=== PATIENT | male | born 1965 | race Caucasian/White ===

== ENCOUNTER 2019-10-19 02:53 | Day surgery (SDC) | payer MEDICARE, MEDICAID, SELFPAY ==
[2019-10-16 10:17] VITALS: BMI 24.1
[2019-10-19 08:29] VITALS: BP 128/80; PULSE 84; RESP 18; TEMP 36.6; O2SAT 99
[2019-10-19] MEDS: LACTATED RINGERS 1,000 ML 150 ML IV CONT (08:39)
--- NOTE | 2019-10-19 09:30 | WPDANESEPPF ---
Anes - Initial Pre Proc Eval Procedure: Operation Date: 10/19/19 09:30 Proposed Procedures p Colonoscopy - Osbaldo Patel MD Date/Time: 10/19/19 09:30 Surgeon: Osbaldo Patel MD Pre Op Diagnosis: diarhhea, change in bowel habits, rectal bleed Patient Data Age: 54 Gender: M Height: 5 ft 7 in Weight: 65.2 kg Last Vital Signs Temp 36.6 C 10/19/19 08:29 Pulse 84 10/19/19 08:29 Resp 18 10/19/19 08:29 BP 128/80 10/19/19 08:29 Pulse Ox 99 10/19/19 08:29 Allergies Allergy/AdvReac Type Severity Reaction Status Date / Time sulfamethizole Allergy Unknown sulfamethoxazole Verified 10/19/19 08:27 ([id number]) sulfamethoxazole Allergy Unknown Rash Verified 10/19/19 08:27 trimethoprim Allergy Unknown trimethoprim Verified 10/19/19 08:27 ([id number]) Home Medications Medication Instructions Recorded Confirmed Type amlodipine 2.5 mg PO DAILY 10/16/19 10/16/19 History atorvastatin 10 mg PO DAILY 10/16/19 10/16/19 History clopidogrel 75 mg PO DAILY 10/16/19 10/19/19 History dicyclomine 20 mg PO DAILY 10/16/19 10/16/19 History hydrocodone-acetaminophen 7.5 tablet PO TID PRN 10/16/19 10/16/19 History levetiracetam 500 mg PO BID 10/16/19 10/19/19 History phenytoin sodium extended 100 mg PO TID 10/16/19 10/16/19 History Patient hx anesthesia problems: none Family hx anesthesia problems: none PMFSH Past Medical History Medical History Cerebral palsy HTN (hypertension) Hyperlipidemia Seizure disorder Smoker Family History Family History Father Family history of Parkinson's disease Other Cerebrovascular accident Diabetes mellitus Family history of arthritis Family history of cardiovascular disease Family history of seizure disorder Hypertension Social History Social History Smoking status: Smoker, status unknown Alcohol intake: never Anes - Eval Final PreProcedure Day of Procedure 10/19/19 09:30 Patient weight: normal Heart: regular rate and rhythm Lungs: clear to auscultation Airway: Mallampati scale class II and special considerations poor dentition Neurological: alert and oriented Last oral intake: >/= 8 hours ASA classification: III Anesthetic plan: proceed Anesthesia type and monitoring: general GIVS and standard monitoring Informed Consent: The patient's anesthetic plan and its attendant risks and benefits were discussed with the patient/family/POA. Questions were solicited and answers provided to the satisfaction of the patient/family/POA.
--- NOTE | 2019-10-19 09:55 | P.CONGI_ITS ---
Assessment and Plan Additional Plan This is a 54-year-old white male patient seen in evaluation at the request of Dr. Villalta. 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 He states loose stools occur post predominantly after meals. He has noticed occasional bright red blood per rectum on tissue paper. Diarrhea is been present for more than 1 year. He has some difficulty with his history given a prior history of cerebral palsy. He has subsequent mental deficiency. Past medical history is significant for cerebral palsy. Peripheral vascular disease. Seizure disorder. Medications include amlodipine, atorvastatin, Plavix, dicyclomine, hydrocortisone, Dilantin He is allergic to sulfa medications. Physical exam reveals him to be alert. Vital signs stable. HEENT exam unremarkable. Lungs are clear to auscultation and percussion. Heart is without murmur or extra sounds. Abdominal exam bowel sounds are present soft nontender with no hepatosplenomegaly. Digital external rectal exam normal. Impression 1. Cerebral palsy, with mental deficiency. 2. Diarrhea. With change in bowel habits. Present for 1 year. 3. Rectal bleeding. Plan is for colonoscopy to evaluate bleeding change in bowel habits and diarrhea. FiberCon 2 tabs p.o. b.i.d. is advised. Further recommendations will be given after endoscopy. GI Consult Note Consult date/time: 10/19/19 09:55 HPI: Rodolfo Truong is a 54 year old male [facility] Past Medical History Medical History Cerebral palsy HTN (hypertension) Hyperlipidemia Seizure disorder Smoker Family History Family History Father Family history of Parkinson's disease Other Cerebrovascular accident Diabetes mellitus Family history of arthritis Family history of cardiovascular disease Family history of seizure disorder Hypertension Social History Social History Smoking status: Smoker, status unknown Alcohol intake: never Meds Home Medications and Allergies Home Medications Medication Instructions Recorded Confirmed Type amlodipine 2.5 mg PO DAILY 10/16/19 10/16/19 History atorvastatin 10 mg PO DAILY 10/16/19 10/16/19 History clopidogrel 75 mg PO DAILY 10/16/19 10/19/19 History dicyclomine 20 mg PO DAILY 10/16/19 10/16/19 History hydrocodone-acetaminophen 7.5 tablet PO TID PRN 10/16/19 10/16/19 History levetiracetam 500 mg PO BID 10/16/19 10/19/19 History phenytoin sodium extended 100 mg PO TID 10/16/19 10/16/19 History Allergies Allergy/AdvReac Type Severity Reaction Status Date / Time sulfamethizole Allergy Unknown sulfamethoxazole Verified 10/19/19 08:27 ([id number]) sulfamethoxazole Allergy Unknown Rash Verified 10/19/19 08:27 trimethoprim Allergy Unknown trimethoprim Verified 10/19/19 08:27 ([id number]) Vital Signs Vital Signs - 24 hr 10/19/19 08:29 Temperature 36.6 C Pulse Rate 84 Respiratory Rate 18 Blood Pressure 128/80 Pulse Oximetry 99
[2019-10-19 10:17] VITALS: BP 98/58; PULSE 75; RESP 18; O2SAT 98
[2019-10-19 10:27] VITALS: BP 103/66; PULSE 71; RESP 18; O2SAT 98
[2019-10-19 10:37] VITALS: BP 120/74; PULSE 73; RESP 22; O2SAT 98
== END 2019-10-19 10:55 | disposition home or self-care (01) ==
PROVIDERS: PCP Family Medicine Adolescent Medicine; Visit Provider Internal Medicine Gastroenterology
PROC: 0DJD8ZZ Inspection of Lower Intestinal Tract, Via Natural or Artificial Opening Endoscopic (ICD-10-PCS; CPT 45378; principal; 2019-10-19 09:30)
DX: R19.7 Diarrhea, unspecified (principal); D12.5 Benign neoplasm of sigmoid colon; K64.8 Other hemorrhoids; K62.5 Hemorrhage of anus and rectum; G80.9 Cerebral palsy, unspecified; I73.9 Peripheral vascular disease, unspecified; G40.909 Epilepsy, unspecified, not intractable, without status epilepticus; I10 Essential (primary) hypertension; E78.5 Hyperlipidemia, unspecified; Z79.02 Long term (current) use of antithrombotics/antiplatelets
CPT/HCPCS: 45385; 88305; J2704; J7120

== ENCOUNTER 2020-05-03 16:05 | Emergency (ER) | payer MEDICARE, MEDICAID, SELFPAY ==
--- NOTE | ~2020-05-03 | XR_ITS ---
XR foot LT min 3V DATE: 05/03/2020 16:50 INDICATION: Calcaneal pain starting one week ago. No known injury. TECHNIQUE: 4 views COMPARISON: 04/30/2015 left foot 04/12/2014 left foot FINDINGS: Pes cavus and forefoot varus are again noted. Plantar and more prominent posterior calcaneal enthesopathy. No fracture, dislocation, periosteal reaction or bone destruction. IMPRESSION: Pes cavus and forefoot varus Plantar and more prominent posterior calcaneal enthesopathy Reviewed, dictated and finalized at location A.
--- NOTE | ~2020-05-03 | XR_ITS ---
XR foot RT min 3V DATE: 05/03/2020 16:52 INDICATION: Pain at inferior calcaneus for one week. No injury.. TECHNIQUE: 4 views COMPARISON: None FINDINGS: Plantar and posterior calcaneal enthesopathy. No fracture or dislocation, periosteal reaction or bone destruction is evident. Moderate osteopenia. IMPRESSION: Plantar and posterior calcaneal enthesopathy Reviewed, dictated and finalized at location A.
[2020-05-03 16:08] VITALS: BP 108/71; PULSE 94; RESP 17; TEMP 36.8; O2SAT 100
--- NOTE | 2020-05-03 16:11 | ED.LOWEXIN ---
HPI - Extremity Injury (Lower) General Chief Complaint: Extremity Injury, Lower Stated Complaint: Trouble with Bottoms of Feet Time Seen by Provider: 05/03/20 16:11 Source: patient and family Mode of arrival: wheelchair Limitations: no limitations History of Present Illness HPI Narrative: Patient is a 54-year-old male with cerebral palsy, hyperlipidemia, hypertension, seizure disorder on Dilantin and Keppra who presents for evaluation of bilateral foot pain. Patient states over the past week and a half he has noticed increasing heel pain especially at the end of the day. He reports worsening pain with exertion and ambulation. He reports the pain is aching at times sharp in nature. No numbness. 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 Patient is supposed to follow-up with his primary care physician this week. No blisters, swelling, redness. No recent falls or injury. Related Data Home Medications Medication Instructions Recorded Confirmed amlodipine 2.5 mg PO DAILY 10/16/19 10/16/19 atorvastatin 10 mg PO DAILY 10/16/19 10/16/19 clopidogrel 75 mg PO DAILY 10/16/19 10/19/19 levetiracetam [Keppra] 500 mg PO BID 10/16/19 10/19/19 phenytoin sodium extended 100 mg PO TID 10/16/19 10/16/19 [Dilantin Extended] Allergies Allergy/AdvReac Type Severity Reaction Status Date / Time sulfamethizole Allergy Unknown sulfamethoxazole Verified 05/03/20 16:18 ([id number]) sulfamethoxazole Allergy Unknown Rash Verified 05/03/20 16:18 trimethoprim Allergy Unknown trimethoprim Verified 05/03/20 16:18 ([id number]) Review of Systems Review of Systems: Narrative: CONSTITUTIONAL: Denies fever CARDIOVASCULAR: Denies chest pain RESPIRATORY: Denies cough or dyspnea. GASTROINTESTINAL: Denies abdominal pain SKIN: Denies rash MUSCULOSKELETAL: Denies back pain, reports bilateral foot pain NEUROLOGIC: Denies headache PMFSH Past Medical History Medical History Cerebral palsy HTN (hypertension) Hyperlipidemia Seizure disorder Smoker Social History Social History Smoking status: Smoker, status unknown Alcohol intake: never Gender identity (if verbalized by the patient): Male Exam Narrative: Exam Narrative: GENERAL: Awake, alert, conversant HEAD: Normocephalic, atraumatic. EYES: PERRLA and EOMI. ENT: Nares clear, no rhinorrhea or epistaxis. Mucous membranes moist. NECK: Supple. CHEST: No respiratory distress, breathing even and non labored HEART: Regular rate, sinus rhythm ABDOMEN:Non distended, non tender EXTREMITIES: Normal range of motion. No edema. SKIN: Warm, dry, no rash. Mild atrophy left foot and left lower extremity, chronic due to cerebral palsy. DP pulses 2+ bilaterally. No streaking erythema, ecchymosis or evidence of bruising or traumatic injury. Intact distal sensation. Pain with palpation bilateral heels. NEURO:No focal deficits. Alert and oriented x3 Course Vital Signs Vital signs: Vital Signs Temperature 36.8 C 05/03/20 16:08 Pulse Rate 94 05/03/20 16:08 Respiratory Rate 17 05/03/20 16:08 Blood Pressure 108/71 05/03/20 16:08 Pulse Oximetry 100 05/03/20 16:08 Temperature 36.8 C 05/03/20 16:08 Pulse Rate 88 05/03/20 17:05 Respiratory Rate 20 05/03/20 17:05 Blood Pressure 108/71 05/03/20 16:08 Pulse Oximetry 100 05/03/20 17:05 MDM - Extremity Injury (Lower) MDM Narrative Medical decision making narrative: Patient presenting for evaluation of bilateral foot and heel pain. This is atraumatic. Patient does notice the symptoms more when he is on his feet or working. Given no signs of infection, excoriation, blisters, I did not obtain any laboratory studies. Imaging of the patient reveals bilateral enthesopathy of bilateral posterior calcaneal joint spaces. This is usually treated with anti-inflammato
[2020-05-03 17:05] VITALS: PULSE 88; RESP 20; O2SAT 100
[2020-05-03] MEDS: oxyCODONE/ACETAMINOPHEN 5-325 MG TABLET 1 TABLET PO (17:06)
== END 2020-05-03 17:46 | disposition home or self-care (01) ==
PROVIDERS: Emergency Provider Emergency Medicine; PCP Family Medicine Adolescent Medicine
DX: M77.32 Calcaneal spur, left foot (principal); M77.31 Calcaneal spur, right foot; E78.5 Hyperlipidemia, unspecified; I10 Essential (primary) hypertension; G40.909 Epilepsy, unspecified, not intractable, without status epilepticus; G80.9 Cerebral palsy, unspecified; Q66.72 Congenital pes cavus, left foot
CPT/HCPCS: 73630; 99284; A9270

== ENCOUNTER 2024-10-15 10:41 | Outpatient (CLI) | payer MEDICARE, MEDICAID, SELFPAY ==
--- NOTE | ~2024-10-15 | MR_ITS ---
EXAMINATION: MR brain/brain stem wo/w con DATE: 10/15/2024 12:13 INDICATION: Epilepsy, unspecified, intractable. TECHNIQUE: Magnetic resonance imaging (MRI) of the brain and brainstem was performed without and with 13 mL MultiHance intravenous contrast. COMPARISON: Head CT 05/17/17 FINDINGS: There is chronic volume loss of the right frontal lobe white matter. There is chronic volum e loss of the right basal ganglia and right thalamus. There are old infarcts in the cerebellum bilate rally. There are scattered areas of nonspecific increased T2-weighted signal intensity in the cerebra l white matter. There is no intracranial hemorrhage, acute infarction, or abnormal intracranial mass lesion. There is ex vacuo dilatation of right lateral ventricle. The orbits are normal. There is muco marilin thickening in the paranasal sinuses, worst in left maxillary sinus. The mastoid air cells are nor mal. IMPRESSION: 1. Old infarcts in the cerebellum. 2. Chronic volume loss of right frontal lobe and the right basal ganglia and thalami. 3. Mild nonspecific cerebral white matter disease, which likely represents chronic small vessel ische lillian disease. Reviewed, dictated and finalized at location A. IST ASSISTANT IMPRESSION: 1. Old infarcts in the cerebellum. 2. Chronic volume loss of right frontal lobe and the right basal ganglia and th jos. 3. Mild nonspecific cerebral white matter disease, which likely represents chrome tanner tami small vessel ischemic disease.
[2024-10-15 11:24] LABS: Basophils Absolute Auto 0.1 K/mm3 (0.0-0.1); Basophils Percent Auto 1.3 % (0.2-1.2); Eosinophils Absolute Auto 0.2 K/mm3 (0-0.3); Eosinophils Percent Auto 1.9 % (0-4.4); Hematocrit 49.1 % (42.0-52.0); Hemoglobin 16.4 g/dL (14.0-18.0); Immature Granulocyte Absolute 0.05 K/mm3 (0.00-0.031); Immature Granulocyte Percent A 0.6 % (0-0.5); Lymphocytes Absolute Auto 2.49 K/mm3 (0.9-3.2); Mean Corpuscular HGB Conc 33.4 g/dl (32-36); Mean Corpuscular Hemoglobin 32.5 pg (26-34); Mean Corpuscular Volume 97.4 fl (80-100); Monocytes Absolute Auto 0.4 K/mm3 (0.1-0.6); Monocytes Percent Auto 5.3 % (2.6-8.5); Neutrophils Absolute Auto 5.1 K/mm3 (1.3-6.7); Neutrophils Percent Auto 60.9 % (45.5-73.1); Platelet Count Result 193 k/mm3 (150-375); Red Blood Count 5.04 M/mm3 (4.6-6.20); Red Cell Distribution Width 13.8 % (11.5-14.5); White Blood Count 8.3 K/mm3 (4.5-10.0)
[2024-10-15 11:37] LABS: Alanine Aminotransferase 23 U/L (6-50); Albumin Level 4.4 g/dL (3.5-5.1); Alkaline Phosphatase 113 U/L (38-126); Anion Gap 10 mmol/L (4-12); Aspartate Amino Transferase 26 U/L (17-59); Bilirubin,Total 0.5 mg/dL (0.2-1.3); Blood Urea Nitrogen 12 mg/dL (9-20); Calcium 9.2 mg/dL (8.4-10.2); Carbon Dioxide 25 mmol/L (22-30); Chloride 104 mmol/L (98-107); Cholesterol 199 mg/dL (0-200); Estimated Glomerular Filt Rate > 60; Glucose 136 mg/dL (65-110); HDL Direct 52 mg/dL; Phenytoin Dilantin 13 ug/mL (10-20); Sodium 139 mmol/L (137-145); Triglycerides 126 mg/dL (<150)
[2024-10-15 11:46] LABS: LDL Cholesterol Direct 96 mg/dL
[2024-10-15 12:02] LABS: Creatinine Urine 24.8 mg/dL
[2024-10-15 12:06] LABS: MALB Creatinine Ratio 87.5 mg/g (0-30); Microalbumin Urine Random 21.7 mg/L (0-16.7)
[2024-10-15 12:50] LABS: Hemoglobin A1C 5.5 % (<5.7)
--- OUTSIDE RECORDS SUMMARY | 2024-10-15 13:46 | XMS_ITS | Referral Summary ---
Author Organization [facility] Address [address] [place] [place] [address] Care Team Providers Care Reverse Unit Operator Fisherman Name Role Phone Juan Miguel Garza MD Primary Care Provider + Source Comments [facility],non-owned Affiliates and Associated Physician Practices is amultiple site organization consisting of ambulatory clinics and hospital sitesin [place], [place], [place] and [place]. This disclosure is being madepursuant to the Care Everywhere program and may not contain all information available regarding this patient. Last updated 18.[facility] [employer] Allergies Active Allergy Reactions Criticality Noted Date Comments Sulfamethoxazole W-Trimethoprim Rash Low 01/28 Cephalosporins 03/11/2014 Medications * Be aware that medications may not be up to date on this document. Alwaysverify current medications with the patient. Medication Sig Dispensed Refills Start Date End Date Status amoxicillin-clavulana te (AUGMENTIN) 500-125 MG tablet Take 1 Tab by mouth 3 times daily. One tablet three times daily until complete. Notify the physician if diarrhea occurs. 30 Tab 0 02/26/2014 Active terbinafine (LAMISIL) 250 MG tablet Take 1 Tab by mouth once daily. 30 Tab 3 02/26/2014 Active ibuprofen (MOTRIN) 800 MG tablet Take 1 Tab by mouth 3 times daily as needed for Pain. 90 Tab 0 02/26/2014 Active hydrocodone-acetamino phen (NORCO) 5-325 MG tablet Take 1 Tab by mouth every 4 hours as needed for Pain. 10 Tab 0 03/11/2014 Active amoxicillin-clavulana te (AUGMENTIN) 875-125 MG tablet Take 1 Tab by mouth every 12 hours. 14 Tab 0 03/11/2014 Active terbinafine (LAMISIL) 250 MG tablet Take 1 Tab by mouth once daily. 10 Tab 0 03/11/2014 Active oxyCODONE-acetaminoph en (PERCOCET) 10-325 MG tablet Take 1 Tab by mouth every 6 hours as needed for Pain. 30 Tab 0 03/11/2014 Active phenytoin ER (DILANTIN) 100 MG capsule Patient takes 1 tab TID and 1 tab QID (alternating dose daily) 105 Cap 11 05/28/2014 Active Active Problems Problem Noted Date Diagnosed Date Epilepsy 07/07/2011 Immunizations Name Administration Dates Next Due PNEUMOCOCCAL PPSV23 03/10/2014 Social History Tobacco Use Types Packs/Day Years Used Date Smoking Tobacco: Every Day Cigarettes 0.1 9 Smokeless Tobacco: Never Tobacco Cessation:Counseling Given: Yes Alcohol Use Standard Drinks/Week Comments No 0 (1 standard drink = 0.6 oz pur e alcohol) Sex and Gender Information Value Date Recorded Sex Assigned at Not on file Gender Identity Not on file Sexual Orientation Not on file Last Filed Vital Signs Vital Sign Reading Time Taken Comments Blood Pressure 148/89 03/11/2014 3:20 AM CDT Pulse 78 03/11/2014 3:20 AM CDT Temperature 36.5 C (97.7 F) 03/11/2014 3:20 AM CDT Respiratory Rate 16 03/11/2014 3:20 AM CDT Oxygen Saturation 96% 03/11/2014 3:20 AM CDT Inhaled Oxygen Concentration - - Weight 78.7 kg (173 lb 8 oz) 03/07/2014 7:45 PM CDT Height 167.6 cm (5' 6 ) 03/07/2014 7:45 PM CDT Body Mass Index 28 03/07/2014 7:45 PM CDT Functional Status Functional Status Response Date of Assess ment Is person deaf or have serious hearing difficult y? No 03/07/2014 Is person blind or have serious difficulty seein g? No 03/07/2014 Does person have serious dif ficulty walking/climbing stairs? No 03/07/2014 Does person have difficulty dressing/bathing? No 03/07/2014 Does person have difficulty doing errands alone? No 03/07/2014 Cognitive Status Response Date of Assessm ent Does person have difficulty concentrating/remembering/making decisions? 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
--- OUTSIDE RECORDS SUMMARY | 2024-10-15 13:46 | XMS_ITS | Clinical Summary ---
Author Organization [facility] Address [address] [place] [place] [address] Care Team Providers Care Loan Originator Name Role Phone Juan Miguel Garza MD Primary Care Provider + Source Comments [facility],non-owned Affiliates and Associated Physician Practices is amultiple site organization consisting of ambulatory clinics and hospital sitesin [place], [place], [place] and [place]. This disclosure is being madepursuant to the Care Everywhere program and may not contain all information available regarding this patient. Last updated 18.[facility] [employer] Allergies Active Allergy Reactions Criticality Noted Date [...] Administration Dates Next Due PNEUMOCOCCAL PPSV23 03/10/2014 Family History Relation Name Status Comments Brother Alive 50 Father (Age 80) stroke Mother grand mal seizu re Other Alive Niece colon can cer Sister Alive Social History Tobacco Use Types Packs/Day Years [...] Mass Index 28 03/07/2014 7:45 PM CDT Plan of Treatment Health Maintenance Due Date Last Done Comments COLOGUARD (AGES 45-75) - COL ON CA SCREENING 1967 COLON MONITORING 1967 COLONOSCOPY - COLON CA SCREENING 1967 CT COLONOGRAPHY - COLON CA SCREENING 1967 Colorectal Cancer Screening 1967 FIT - COLON CA SCREENING 1967 FLEX SIG - COLON CA SCREENING 1967 LIPID TESTING 1967 MEDICARE AWV 12 MONTHS 1967 HIV SCREENING 1982 HEPATITIS C SCREENING 08/11/1985 DTAP/TDAP/TD VACCINES (1 - Tdap) 1986 HEPATITIS B VACCINE (1 of 3 - 19+ 3-dose series) 1986 PNEUMOCOCCAL VACCINE 50+ (2 of 2 - PCV) 03/10/2015 03/10/2014 PNEUMOCOCCAL VACCINE (2 of 2 - PCV) 03/10/2015 03/10/2014 ZOSTER VACCINE (1 of 2) 2017 COVID-19 VACCINE (1 - 2023-2 5 season) 2024 INFLUENZA VACCINE (#1) 2024 DEPRESSION SCREENING 08/29/2024 HIB VACCINE Aged Out No longer eligi ble based on patient's age to complete this topic HPV VACCINE Aged Out No longer eligi ble based on patient's age to complete this topic MENINGOCOCCAL (Group B) VACCINE Aged Out No longer eligible based on patient's age to complete this topic MENINGOCOCCAL VACCINE Aged Out No juan melissa eligible based on patient's age to complete this topic Advance Directives Documents on File Type Date Recorded Patient Superintendent Distribution Expl anation Adv Directive/Living Will/POA 06/27/2014 12:29 AM Adv Directive/Living Will/POA 03/12/2014 6:37 PM * Full Code (Latest Code Status on File) Date Activated Date Inactivated Comments 03/07/2014 8:48 AM 03/11/2014 3:18 PM Care Teams Loan Originator Relationship Specialty Start Date End Date Juan Miguel Garza MD [address] [place] [id number] PCP - General 10/22/19
--- OUTSIDE RECORDS SUMMARY | 2024-10-15 13:46 | XMS_ITS | Patient Health Summary ---
Author Organization [facility] Address [address] [place] [address] Care Team Providers Care Switchboard Operator Supervisor Name Role Phone Juan Miguel Garza MD Primary Care Provider + Note from [facility],non-owned Affiliates and Associated Physician Practices is amultiple site organization consisting of ambulatory clinics and hospital sitesin [place], [place], [place] and [place]. This disclosure is being madepursuant to the Care Everywhere program and may not contain all information available regarding this patient. Last updated 18.[facility] Allergies * Sulfamethoxazole W-Trimethoprim(Rash) -Low Criticality * Cephalosporins Medications * Be aware that medications may not be up to date on this document. Alwaysverify current medications with the patient. * amoxicillin-clavulanate (AUGMENTIN) 500-125 MG tablet(Started 02/26/2014) Take 1 Tab by mouth 3 times daily. One tablet three times daily until complete. Notify the physician if diarrhea occurs. * terbinafine (LAMISIL) 250 MG tablet(Started 02/26/2014) Take 1 Tab by mouth once daily. 3 refills left * ibuprofen (MOTRIN) 800 MG tablet(Started 02/26/2014) Take 1 Tab by mouth 3 times daily as needed for Pain. * hydrocodone-acetaminophen (NORCO) 5-325 MG tablet(Started 03/11/2014) Take 1 Tab by mouth every 4 hours as needed for Pain. * amoxicillin-clavulanate (AUGMENTIN) 875-125 MG tablet(Started 03/11/2014) Take 1 Tab by mouth every 12 hours. * terbinafine (LAMISIL) 250 MG tablet(Started 03/11/2014) Take 1 Tab by mouth once daily. * oxyCODONE-acetaminophen (PERCOCET) 10-325 MG tablet(Started 03/11/2014) Take 1 Tab by mouth every 6 hours as needed for Pain. * phenytoin ER (DILANTIN) 100 MG capsule(Started 05/28/2014) Patient takes 1 tab TID and 1 tab QID (alternating dose daily) 11 refills left Active Problems Problem Noted Date Diagnosed Date Epilepsy 07/07/2011 Immunizations * PNEUMOCOCCAL PPSV23(Given 03/10/2014) Social History Tobacco Use Types Packs/Day Years [...] Mass Index 28 03/07/2014 7:45 PM CDT Procedures * CREATININE BLOOD(Performed 03/11/2014) * GLUCOSE - POINT OF CARE(Performed 03/09/2014) * VANCOMYCIN LEVEL TROUGH(Performed 03/09/2014) * GLUCOSE - POINT OF CARE(Performed 03/09/2014) * VANCOMYCIN LEVEL TROUGH(Performed 03/09/2014) * GLUCOSE - POINT OF CARE(Performed 03/08/2014) * BASIC METABOLIC PANEL (CALCIUM TOTAL)(Performed 03/08/2014) Performed for Cellulitis of foot, Epilepsy (HCC) * CBC W AUTO DIFFERENTIAL(Performed 03/08/2014) Performed for Cellulitis of foot, Epilepsy (HCC) * VAS ARTERIAL ANKLE ARM INDEX(Performed 03/07/2014) Performed for Cellulitis of foot, Epilepsy (HCC) * GLUCOSE - POINT OF CARE(Performed 03/07/2014) * COMPREHENSIVE METABOLIC PANEL(Performed 03/07/2014) * CBC W AUTO DIFFERENTIAL(Performed 03/07/2014) * EKG 12-LEAD(Performed 02/12/2014) Performed for Pain in joint, site unspecified * ERYTHROCYTE SEDIMENTATION RATE(Performed 02/12/2014) * COMPREHENSIVE METABOLIC PANEL(Performed 02/12/2014) * CBC W AUTO DIFFERENTIAL(Performed 02/12/2014) * XR FOOT RIGHT 3VW OR MORE(Performed 02/12/2014) Performed for Pain in joint, site unspecified * PHENYTOIN LEVEL TOTAL(Performed 01/08/2014) * COMPREHENSIVE METABOLIC PANEL(Performed 01/08/2014) * XR FOOT LEFT 3VW OR MORE(Performed 01/08/2014) * CBC W AUTO DIFFERENTIAL(Performed 01/08/2014) * XR SHOULDER RIGHT 2VW OR MORE(Performed 07/17/2013) Performed for Shoulder pain, right * PHENYTOIN LEVEL TOTAL(Performed 07/07/2011) Performed for Epilepsy (HCC) * ED INCISION AND DRAINAGE(Performed 07/21/2010) Performed for Scrotal abscess * CULTURE WOUND(Performed 07/21/2010) * CREATININE BLOOD(Performed 04/06/2007) Performed for Prepatellar Bursitis * PHENYTOIN LEVEL TOTAL(Performed 04/06/2007) Performed for Prepatellar Bursitis * CREATININE BLOOD(Performed 04/05/2007) Performed for Prepatellar Bursitis * ERYTHROCYTE SEDIMENTATION RATE(Performed 04/04/2007) Performed for Prepatellar Bursitis * CBC W AUTO DIFFERENTIAL(Performed 04/04/2007) Performed for Prepatellar Bursitis Results * CREATININE BLOOD (03/11/2014 3:28 AM CDT) Only the most recent of3 resultswithin the time period is included. Creatinine 0.55 0.50 - 1.30 mg/dL 03/11/2014 3:54 AM CDT [facility] eGFR by MDRD >60 >60 mL/min/1.7 3m2 03/11/2014 3:54 AM CDT [facility] eGFR by MDRD >60 >60 mL/min/1.7 3m2 03/11/2014 3:54 AM CDT [facility] Blood BLOOD SPECIMEN / Unknown 03/11/2014 3:28 AM CDT 03/11/2014 3:31 AM CDT Janay Rendon MD LAB - CHEMISTRY [place] [facility] Performing Organization Address [facility] Co de Phone Number [facility] [address] [place] [address] * (ABNORMAL) GLUCOSE - POINT OF CARE (03/09/2014 12:15 PM CDT) Only the most recent of4 resultswithin the time period is included. Glucose WB/POC 64(L) 70 - 106 mg/dL 03/09/2014 5:22 PM CDT [facility] Blood BLOOD SPECIMEN / Unknown 03/09/2014 12:15 PM CDT 03/09/2014 5:22 PM CDT Janay Rendon MD LAB - POINT OF CARE ORDERABLES Performing Organization Address [facility] de Phone Number [facility] [id number] [place] [phone] * (ABNORMAL) VANCOMYCIN LEVEL TROUGH (03/09/2014 8:36 AM CDT) Only the most recent of2 resultswithin the time period is included. Vancomycin Trough 15.4(H) 5.0 - 15.0 ug/mL 03/09/2014 8:59 AM CDT [facility] Blood BLOOD SPECIMEN / Unknown 03/09/2014 8:36 AM CDT 03/09/2014 8:39 AM CDT Janay Rendon MD LAB - CHEMISTRY [place] Performing Organization Address [facility] Co de Phone Number [facility] [address] [place] [address] * (ABNORMAL) CBC W AUTO DIFFERENTIAL (03/08/2014 3:28 AM CDT) Only the most recent of5 resultswithin the time period is included. [facility] WBC 13.6(H) 4.4 - 10.7 x10^9/L 03/08/2014 3:56 AM CDT [facility] RBC 4.30 3.80 - 5.40 x10^12/L 03/08/2014 3:56 AM CDT [facility] Hemoglobin 14.3 12.0 - 17.6 gm/dL 03/08/2014 3:56 AM CDT [facility] Hematocrit 40.9 35.2 - 51.7 % 03/08/2014 3:56 AM CDT [facility] MCV 95.1 80.7 - 98.3 fl 03/08/2014 3:56 AM CDT [facility] MCH 33.3 26.7 - 34.0 pg 03/08/2014 3:56 AM CDT [facility] MCHC 35.0 30.8 - 35.9 gm/dL 03/08/2014 3:56 AM CDT [facility] Platelet Count 175 153 - 416 x10^9/L 03/08/2014 3:56 AM CDT [facility] RDW-CV 14.3 12.1 - 14.9 % 03/08/2014 3:56 AM CDT [facility] MPV 12.1 9.4 - 12.9 fl 03/08/2014 3:56 AM CDT [facility] Neutrophils % 61.9 44.0 - 73.0 % 03/08/2014 3:56 AM CDT [facility] Lymphocytes % 25.2 20.0 - 43.0 % 03/08/2014 3:56 AM CDT [facility] Monocytes % 6.3 5.0 - 13.0 % 03/08/2014 3:56 AM CDT [facility] Eosinophils % 4.8 0.0 - 6.0 % 03/08/2014 3:56 AM CDT [facility] Basophils % 0.7 0.0 - 2.0 % 03/08/2014 3:56 AM CDT [facility] Immature Granulocytes 1.1(H) 0 - 1 % 03/08/2014 3:56 AM CDT [facility] Neutrophil Absolute 8.41(H) 2.01 - 7.14 x10^9/L 03/08/2014 3:56 AM CDT [facility] Lymphocytes Absolute 3.42 1.07 - 3.94 x10^9/L 03/08/2014 3:56 AM CDT [facility] Monocytes Absolute 0.86 0.26 - 1.07 x10^9/L 03/08/2014 3:56 AM CDT [facility] Eosinophils Absolute 0.65(H) 0 - 0.47 x10^9/L 03/08/2014 3:56 AM CDT [facility] Basophils Absolute 0.09(H) 0 - 0.08 x10^9/L 03/08/2014 3:56 AM CDT [facility] Immature Granulocytes Absolute 0.15(H) 0.00 - 0.06 x10^9/L 03/08/2014 3:56 AM CDT [facility] Blood BLOOD SPECIMEN / Unknown 03/08/2014 3:28 AM CDT 03/08/2014 3:34 AM CDT Janay Rendon MD LAB - HEMATOLOGY ORD ERABLES [facility] [address] [place] [address] * BASIC METABOLIC PANEL (CALCIUM TOTAL) (03/08/2014 3:28 AM CDT) Glucose 96 74 - 106 mg/dL 03/08/2014 4:01 AM CDT [facility] Sodium 137 136 - 145 mmol/L 03/08/2014 4:01 AM CDT [facility] Potassium 3.9 3.5 - 5.1 mmol/L 03/08/2014 4:01 AM CDT [facility] Chloride 104 98 - 107 mmol/L 03/08/2014 4:01 AM CDT [facility] CO2 28 22 - 31 mmol/L 03/08/2014 4:01 AM CDT [facility] Calcium 8.6 8.5 - 10.1 mg/dL 03/08/2014 4:01 AM CDT [facility] Anion Gap 5 5 - 15 mmol/L 03/08/2014 4:01 AM CDT [facility] BUN 11 7 - 21 mg/dL 03/08/2014 4:01 AM CDT [facility] Creatinine 0.78 0.50 - 1.30 mg/dL 03/08/2014 4:01 AM T [facility] eGFR by MDRD >60 >60 mL/min/1.7 3m2 03/08/2014 4:01 AM CDT [facility] eGFR by MDRD >60 >60 mL/min/1.7 3m2 03/08/2014 4:01 AM CDT [facility] Blood BLOOD SPECIMEN / Unknown 03/08/2014 3:28 AM CDT 03/08/2014 3:34 AM CDT Janay Rendon MD LAB - CHEMISTRY [facility] [facility] Organization Address City/State/ZIP Co de Phone Number [facility] [address] [place] [address] * VAS ARTERIAL ANKLE ARM INDEX (ADRIAN - LIMITED PRESSURE STUDY) (03/07/2014 4:17 PM CDT) Anatomical Region Laterality Modality Ultrasound 03/07/2014 3:40 PM CDT Narrative Procedure Note Yonny Anderson MD - 03/08/2014 [facility] [address] [place] [address] Lower Extremity Arterial Doppler Report Pat.Name: LEIGHANN ROBERTS.ID: [id number] .Date: 03/07/2014 Exam Time: 3:40:00 PM Study Type:ADRIAN/PVR Age: 14 1965,48Y Sex: MALE Sonogrphr: Juan Diego Osman RVT/ Student MATA Pat. Stat.:Outpatient Room: ED 06 Reason for Study:Swelling -Leg, left, Discoloration of digits, Cellutlitis of foot History / Clinical:Smoking - current Procedures:Ankle Arm Index Visit ID: [id number] SUMMARY: Moderate arterial insufficiency bilateral lower extremities FINDINGS: Procedure: The arterial vasculature of the lower extremities was evaluated by analysis of Doppler pressures and waveforms obtained in the legs at rest. Study Quality: Technically difficult exam due to patient pain tolerance. ADRIAN: Rt ankle brachial index is 0.63. Left ankle brachial index is 0.53 (normal greater than 0.90). Unable to obtain right 4th and 5th digit waveforms due to patient pain tolerance. The left 4th and 5th digits were not taken as well. MEASUREMENTS: PRESSURES Right Brachial Brach P 156 mmHg Right Ankle DP AnkleDP P 98 mmHg Right Ankle PT AnklePT P 95 mmHg Left Brachial Brach P 154 mmHg Left Ankle DP AnkleDP P 83 mmHg Left Ankle PT AnklePT P 81 mmHg Left ADRIAN (DP) ADRIAN (DP) 0.53 Left ADRIAN (PT) ADRIAN (PT) 0.52 Right ADRIAN (DP) ADRIAN (DP) 0.63 Right ADRIAN (PT) ADRIAN (PT) 0.61 Signed 03/08/2014 12:04 PM Yonny Anderson MD Janay Rendon MD VASCULAR LAB ORDERAB LES * (ABNORMAL) COMPREHENSIVE METABOLIC PANEL (03/07/2014 4:34 AM CDT) Only the most recent of3 resultswithin the time period is included. [facility] Glucose 99 74 - 106 mg/dL 03/07/2014 5:01 AM CDT [facility] Sodium 136 136 - 145 mmol/L 03/07/2014 5:01 AM CDT [facility] Potassium 4.2 3.5 - 5.1 mmol/L 03/07/2014 5:01 AM CDT [facility] Chloride 103 98 - 107 mmol/L 03/07/2014 5:01 AM T [facility] CO2 30 22 - 31 mmol/L 03/07/2014 5:01 AM CDT [facility] Calcium 9.7 8.5 - 10.1 mg/dL 03/07/2014 5:01 AM CDT [facility] Anion Gap 3(L) 5 - 15 mmol/L 03/07/2014 5:01 AM CDT [facility] BUN 15 7 - 21 mg/dL 03/07/2014 5:01 AM CDT [facility] Creatinine 0.81 0.50 - 1.30 mg/dL 03/07/2014 5:01 AM CDT [facility] eGFR by MDRD >60 >60 mL/min/1.7 3m2 03/07/2014 5:01 AM CDT [facility] eGFR by MDRD >60 >60 mL/min/1.7 3m2 03/07/2014 5:01 AM T [facility] Alkaline Phosphatase 102 38 - 126 U/L 03/07/2014 5:01 AM CDT [facility] ALT 28 12 - 78 U/L 03/07/2014 5:01 AM CDT [facility] AST 15 5 - 40 U/L 03/07/2014 5:01 AM CDT [facility] Protein Total 7.8 6.4 - 8.2 gm/dL 03/07/2014 5:01 AM T [facility] Albumin 3.8 3.4 - 5.0 gm/dL 03/07/2014 5:01 AM T [facility] Bilirubin Total 0.2 0.2 - 1.0 mg/dL 03/07/2014 5:01 AM T [facility] Blood BLOOD SPECIMEN / Unknown 03/07/2014 4:34 AM CDT 03/07/2014 4:41 AM CDT Alfredo Tejeda MD LAB - CHEMISTRY [place] [facility] [address] [place] [address] * EKG 12-LEAD (02/12/2014 11:06 PM CDT) Ventricular Rate 77 BPM [facility] Atrial Rate 77 BPM [facility] P-R Interval 154 ms [facility] QRS Duration ms 76 ms [facility] Q-T Interval ms 384 ms [facility] QTC Calculation (Bezet) 434 ms [facility] Calculated P Brewster 15 degrees [facility] Calculated R Brewster 10 degrees [facility] Calculated T Brewster 2 degrees [facility] Interpretation EKG Normal sinus rhythm Normal ECG No previous ECGs available Confirmed by RORO MACIAS MD ([id number]) on 02/13/2014 9:43:57 AM [facility] 02/12/2014 11:0 6 PM CDT 02/13/2014 9:43 AM CDT Narrative [facility] - 02/13/2014 8:44 AM CDT Procedure Note Document, Scanned - 02/13/2014 8:13 AM CDT Transcriptions Document, Scanned - 02/13/2014 8:34 AM CDT Document, Scanned - 02/13/2014 10:07 AM CDT Neal Padilla DO ECG ORDERABLES Performing Organization Address City/[facility]/ZIP Co de Phone Number [facility] * SED RATE WESTERGREN (02/12/2014 10:52 PM CDT) Only the most recent of2 resultswithin the time period is included. Erythrocyte Sedimentation Rate [place] 10 0 - 15 mm/hr 02/12/2014 11:22 PM CDT [facility] Blood BLOOD SPECIMEN / Unknown 02/12/2014 10:52 PM CDT 02/12/2014 10:54 PM CDT Neal Padilla DO LAB - HEMATOLOGY ORD ERABLES [facility] [address] [place] [address] * XR FOOT 3+ VW RIGHT (02/12/2014 9:25 PM CDT) Anatomical Region Laterality Modality Ankle / Foot Radiographic Orly ging 02/13/2014 8:35 AM CDT Narrative 02/13/2014 9:38 AM CDT RIGHT FOOT INDICATION: Right fifth toe pain. Three views demonstrate small Achilles and plantar spurs. The right foot is otherwise negative. There is no evidence of a fracture, bone destruction or significant arthritic change. Edited by Dariana John on 02/13/2014 9:04 AM Procedure Note Alexander Dumont MD - 02/13/2014 RIGHT FOOT INDICATION: Right fifth toe pain. Three views demonstrate small Achilles and plantar spurs. The right foot is otherwise negative. There is no evidence of a fracture, bone destruction or significant arthritic change. Edited by Dariana John on 02/13/2014 9:04 AM Neal Padilla DO DIAGNOSTIC IMAGING O RDERABLES * PHENYTOIN LEVEL TOTAL (01/08/2014 7:48 PM CDT) Only the most recent of3 resultswithin the time period is included. Phenytoin 19.1 10.0 - 20.0 ug/mL 01/08/2014 8:16 PM CDT [facility] Blood BLOOD SPECIMEN / Unknown 01/08/2014 7:48 PM CDT 01/08/2014 7:51 PM CDT Tona Jenkins PA-C LAB - CHEMISTRY ORD ERABLES [facility] [address] [place] [address] * XR FOOT 3+ VW LEFT (01/08/2014 7:05 PM CDT) Anatomical Region Laterality Modality Ankle / Foot Radiographic Orly ging 01/08/2014 7:36 PM CDT Impressions 01/08/2014 7:37 PM CDT Soft tissue swelling. Periosteal thickening of the fourth and fifth metatarsals. Narrative 01/08/2014 7:37 PM CDT Left foot 3 views unilateral Indication: Left foot pain 3 views of the left foot are provided and show chronic deformity of the great toe which appears to be dorsiflexed. There is soft tissue swelling of the toes. There is chronic periosteal thickening of the fourth and fifth metatarsals. There is moderate midfoot degenerative change. Posterior calcaneal spur is noted. Procedure Note Yaneth Mcgee MD - 01/08/2014 Left foot 3 views unilateral Indication: Left foot pain 3 views of the left foot are provided and show chronic deformity of the great toe which appears to be dorsiflexed. There is soft tissue swelling of the toes. There is chronic periosteal thickening of the fourth and fifth metatarsals. There is moderate midfoot degenerative change. Posterior calcaneal spur is noted. IMPRESSION Soft tissue swelling. Periosteal thickening of the fourth and fifth metatarsals. Tona Jenkins PA-[facility] DI[facility] ORDERABLES * XR SHOULDER 2+ VW RIGHT (07/17/2013 12:14 PM SAP SECURITY CONSULTANT) Anatomical Region Laterality Modality Upper Extremity Radiographic Orly ging 07/17/2013 12:3 4 PM SAP SECURITY CONSULTANT Impressions 07/17/2013 12:35 PM SAP SECURITY CONSULTANT No acute findings Narrative 07/17/2013 12:35 PM SAP SECURITY CONSULTANT Right shoulder 2 views CLINICAL: Pain FINDINGS: The alignment is normal. There is no fracture or bone lesion. There is minimal spurring at the acromioclavicular and inferior glenohumeral joint Procedure Note Dariana Antony MD - 07/17/2013 Right shoulder 2 views CLINICAL: Pain FINDINGS: The alignment is normal. There is no fracture or bone lesion. There is minimal spurring at the acromioclavicular and inferior glenohumeral joint IMPRESSION No acute findings Carlee Ray GAMING FLOOR SUPERVISOR-SENIOR TECHNICAL SPECIALIST DIAGNOSTIC IMAGI NG ORDERABLES * ED INCISION AND DRAINAGE (07/21/2010 1:51 PM SAP SECURITY CONSULTANT) Narrative 07/21/2010 1:51 PM SAP SECURITY CONSULTANT 07/21/2010 12:59 PM Leihgann Roberts [id number] [facility] EMERGENCY DEPT History Chief Complaint Patient presents with Cyst c/o boil to left testicle for past 2 days. no fever. HPI Comments: Pt presents with c/o left scrotal cyst with increased swelling, pain, redness. No fever or drainage. No prior similar problems. He denies PMH. No smoking. Denies diabetes. Abscess The history is provided by the patient. This is a new problem. The current episode started less than one week ago. The onset was gradual. The problem occurs continuously. The problem has been gradually worsening. Body Location: scrotum.The problem is moderate. The abscess is characterized by redness, painfulness and swelling. It is unknown what he was exposed to. There has been no fever, no chills, no nausea, no lymphangitis, and no swollen lymph nodes.The relevant past medical history includes abscess.His tetanus status is UTD. The symptoms are aggravated by squeezing and movement. Nothing relieves the symptoms. He has tried nothing for the symptoms. The treatment provided no relief. No past medical history on file. No past surgical history on file. History Social History Marital Status: Single Spouse Name: N/A Number of Children: N/A Years of Education: N/A Occupational History Not on file. Social History Main Topics Tobacco Use: Not on file Alcohol Use: Not on file Drug Use: Not on file Sexually Active: Not on file Other Topics Concern Not on file Social History Narrative No narrative on file Medications Current outpatient prescriptions Medication Sig Dispense Refill ciprofloxacin (CIPRO) 500 MG tablet Take 1 Tab by mouth 2 times daily. 20 Tab 0 hydrocodone-acetaminophen (VICODIN) 5-500 MG tablet Take 1-2 Tabs by mouth 4 times daily as needed for Pain. 20 Tab 0 sulfamethoxazole-trimethoprim (BACTRIM DS; SEPTRA DS) 800-160 MG tablet Take 1 Tab by mouth every 12 hours for 10 days. For 10 days. 20 Tab 0 Review of Systems Constitutional: Negative. Negative for fever, chills, weight loss, malaise/fatigue and diaphoresis. Respiratory: Negative. Cardiovascular: Negative. Gastrointestinal: Negative for nausea and vomiting. Genitourinary: Negative. Negative for dysuria, urgency, frequency, hematuria and flank pain. Left scrotal mass Skin: Negative. Neurological: Negative for weakness. All other systems reviewed and are negative. BP 132/87 Pulse 87 Temp 98.2 F Resp 20 Ht 5' 6 (1.676 m) Wt 156 lb (70.761 kg) SpO2 98% Physical Exam Nursing note and vitals reviewed. Constitutional: He is oriented to person, place, and time and well-developed, well-nourished, and in no distress. No distress. Cardiovascular: Normal rate, regular rhythm and intact distal pulses. Pulmonary/Chest: Effort normal. Abdominal: Soft. He exhibits no distension. No tenderness. Genitourinary: Penis normal. He exhibits abnormal scrotal mass (left 3cm tender, fluctulant mass without pointing. warm, mild erythema. no streaking. ). He exhibits no abnormal testicular mass, no testicular tenderness, no scrotal tenderness and no epididymal tenderness. Cremasteric reflex is present. Neurological: He is alert and oriented to person, place, and time. Skin: Skin is warm and dry. He is not diaphoretic. Psychiatric: Affect normal. Procedures Incision and Drainage Date/Time: 07/21/2010 12:00 PM Performed by: DENVER RODRIGUEZ Authorized by: DENVER RODRIGUEZ Consent: Verbal consent obtained. Written consent not obtained. Risks and benefits: risks, benefits and alternatives were discussed Consent given by: patient Patient understanding: patient states understanding of the procedure being performed Patient consent: the patient's understanding of the procedure matches consent given Procedure consent: procedure consent matches procedure scheduled Relevant documents: relevant documents present and verified Test results: test results available and properly labeled Site marked: the operative site was marked Imaging studies: imaging studies available Required items: required blood products, implants, devices, and special equipment available Patient identity confirmed: verbally with patient and arm band Time out: Immediately prior to procedure a time out was called to verify the correct patient, procedure, equipment, field support engineer and site/side marked as required. Type: cyst Body area: anogenital Location details: scrotal wall Anesthesia: local infiltration Local anesthetic: lidocaine 1% without epinephrine Anesthetic total: 1 ml Patient sedated: no Scalpel size: 11 Needle gauge: 18 Incision type: single straight Complexity: simple Drainage: purulent Drainage amount: moderate Wound treatment: wound left open Patient tolerance: Patient tolerated the procedure well with no immediate complications. Comments: 5mL of purulent material from the infected cyst. Aspirated with 18 gauge needle first to confirm abscess, then small incision with 11 blade. Broke up loculations and emptied cyst of material. Instructed pt in warm baths and to ecncouage drainage. EKG Interpretation Lab/SPO2 Interpretation Medical Decision Making I have reviewed the: Nursing Notes and Vitals. Progress Notes Wound cultures x 2 sent. Start on cipro and bactrim and vicodin for pain. Follow up with Urology or PCP. ED Plan/Course: discharge Clinical Impression Encounter Diagnosis Name Primary? Scrotal abscess Procedure Note Denver Rodriguez MD - 07/21/2010 12:59 PM CST 07/21/2010 12:59 PM Leighann Roberts [id number] [facility] EMERGENCY DEPT History Chief Complaint Patient presents with Cyst c/o boil to left testicle for past 2 days. no fever. HPI Comments: Pt presents with c/o left scrotal cyst with increasedswelling, pain, redness. No fever or drainage. No prior similarproblems. He denies PMH. No smoking. Denies diabetes. Abscess The history is provided by the patient. This is a new problem. The currentepisode started less than one week ago. The onset was gradual. The problemoccurs continuously. The problem has been gradually worsening. BodyLocation: scrotum.The problem is moderate. The abscess is characterized byredness, painfulness and swelling. It is unknown what he was exposed to.There has been no fever, no chills, no nausea, no lymphangitis, and noswollen lymph nodes.The relevant past medical history includes abscess.Histetanus status is UTD. The symptoms are aggravated by squeezing andmovement. Nothing relieves the symptoms. He has tried nothing for thesymptoms. The treatment provided no relief. No past medical history on file. No past surgical history on file. History Social History Marital Status: Single Spouse Name: N/A Number of Children: N/A Years of Education: N/A Occupational History Not on file. Social History Main Topics Tobacco Use: Not on file Alcohol Use: Not on file Drug Use: Not on file Sexually Active: Not on file Other Topics Concern Not on file Social History Narrative No narrative on file Medications Current outpatient prescriptions Medication Sig Dispense Refill ciprofloxacin (CIPRO) 500 MG tablet Take 1 Tab by mouth 2 times daily.20 Tab 0 hydrocodone-acetaminophen (VICODIN) 5-500 MG tablet Take 1-2 Tabs bymouth 4 times daily as needed for Pain. 20 Tab 0 sulfamethoxazole-trimethoprim (BACTRIM DS; SEPTRA DS) 800-160 MG tabletTake 1 Tab by mouth every 12 hours for 10 days. For 10 days. 20 Tab 0 Review of Systems Constitutional: Negative. Negative for fever, chills, weight loss,malaise/fatigue and diaphoresis. Respiratory: Negative. Cardiovascular: Negative. Gastrointestinal: Negative for nausea and vomiting. Genitourinary: Negative. Negative for dysuria, urgency, frequency,hematuria and flank pain. Left scrotal mass Skin: Negative. Neurological: Negative for weakness. All other systems reviewed and are negative. BP 132/87 Pulse 87 Temp 98.2 F Resp 20 Ht 5' 6 (1.676 m) Wt156 lb (70.761 kg) SpO2 98% Physical Exam Nursing note and vitals reviewed. Constitutional: He is oriented to person, place, and time andwell-developed, well-nourished, and in no distress. No distress. Cardiovascular: Normal rate, regular rhythm and intact distal pulses. Pulmonary/Chest: Effort normal. Abdominal: Soft. He exhibits no distension. No tenderness. Genitourinary: Penis normal. He exhibits abnormal scrotal mass (left 3cmtender, fluctulant mass without pointing. warm, mild erythema. nostreaking. ). He exhibits no abnormal testicular mass, no testiculartenderness, no scrotal tenderness and no epididymal tenderness.Cremasteric reflex is present. Neurological: He is alert and oriented to person, place, and time. Skin: Skin is warm and dry. He is not diaphoretic. Psychiatric: Affect normal. Procedures Incision and Drainage Date/Time: 07/21/2010 12:00 PM Performed by: DENVER RODRIGUEZ Authorized by: DENVER RODRIGUEZ Consent: Verbal consent obtained. Written consent not obtained. Risks and benefits: risks, benefits and alternatives were discussed Consent given by: patient Patient understanding: patient states understanding of the procedure beingperformed Patient consent: the patient's understanding of the procedure matchesconsent given Procedure consent: procedure consent matches procedure scheduled Relevant documents: relevant documents present and verified Test results: test results available and properly labeled Site marked: the operative site was marked Imaging studies: imaging studies available Required items: required blood products, implants, devices, and specialequipment available Patient identity confirmed: verbally with patient and arm band Time out: Immediately prior to procedure a time out was called to verifythe correct patient, procedure, equipment, field support engineer and site/sidemarked as required. Type: cyst Body area: anogenital Location details: scrotal wall Anesthesia: local infiltration Local anesthetic: lidocaine 1% without epinephrine Anesthetic total: 1 ml Patient sedated: no Scalpel size: 11 Needle gauge: 18 Incision type: single straight Complexity: simple Drainage: purulent Drainage amount: moderate Wound treatment: wound left open Patient tolerance: Patient tolerated the procedure well with no immediatecomplications. Comments: 5mL of purulent material from the infected cyst. Aspirated with18 gauge needle first to confirm abscess, then small incision with 11blade. Broke up loculations and emptied cyst of material. Instructed ptin warm baths and to ecncouage drainage. EKG Interpretation Lab/SPO2 Interpretation Medical Decision Making I have reviewed the: Nursing Notes and Vitals. Progress Notes Wound cultures x 2 sent. Start on cipro and bactrim and vicodin for pain. Follow up with Urology or PCP. ED Plan/Course: discharge Clinical Impression Encounter Diagnosis Name Primary? Scrotal abscess Denver Rodriguez MD PROCEDURE/MINOR SURG ICAL ORDERABLES * CULTURE WOUND (07/21/2010 12:59 PM SAP SECURITY CONSULTANT) Result [facility] Comment: Final GRAM STAIN Many Gram positive cocci Moderate numbers gram positive bacilli resembling diphtheroids Many WBC's CULTURE Organisms isolated are consistent with usual skin courtney. COAGULASE NEGATIVE STAPHYLOCOCCUS SP. Heavy growth DIPHTHEROIDS Heavy growth SPECIMEN FROM ABSCESS / Unknown 07/21/2010 12:59 PM SAP SECURITY CONSULTANT 07/21/2010 1:27 PM SAP SECURITY CONSULTANT Narrative Resulting Agency Comment Performed By [facility] [address] Denver Rodriguez MD LAB - MICROBIOLOGY O RDERABLES [facility] [address] [place] [address] Care Teams Switchboard Operator Supervisor Relationship Specialty Start Date End Date Juan Miguel Garza MD [address] [place] [address] [address] [place] [address] PCP - General 10/22/19
== END 2024-10-15 10:42 | disposition home or self-care (01) ==
PROVIDERS: PCP Family Medicine Adolescent Medicine; Visit Provider Family Medicine
DX: G31.89 Other specified degenerative diseases of nervous system (principal); R90.82 White matter disease, unspecified; G40.309 Generalized idiopathic epilepsy and epileptic syndromes, not intractable, without status epilepticus; I70.0 Atherosclerosis of aorta; I10 Essential (primary) hypertension; Z13.1 Encounter for screening for diabetes mellitus; Z86.73 Personal history of transient ischemic attack (TIA), and cerebral infarction without residual deficits
CPT/HCPCS: 36415; 70553; 80053; 80061; 80185; 82043; 83036; 84443; 85025; A9577

== ENCOUNTER 2024-10-30 09:52 | Outpatient (CLI) | payer MEDICARE, MEDICAID, SELFPAY | END 2024-10-30 09:53 | disposition home or self-care (01) | LOC: ANHIMG 09:54 | PROVIDERS: PCP Family Medicine Adolescent Medicine; Visit Provider Family Medicine | DX: N13.30 Unspecified hydronephrosis (principal); N26.1 Atrophy of kidney (terminal); R80.9 Proteinuria, unspecified | CPT/HCPCS: 76775 ==